=== PATIENT | male | born 1990 | race Caucasian/White ===

== ENCOUNTER 2019-01-23 18:57 | Emergency (ER) | payer OTHER ==
[~2019-01-23] VITALS: Ht 170.2 cm; Wt 62.1 kg
--- NOTE | 2019-01-23 19:00 | NUR ---
PER PATIENT TETANUS UPTODATE.
[2019-01-23] MEDS ORDERED: EMTR1TAB6 PO (19:07)
--- NOTE | 2019-01-23 19:10 | NUR ---
DR VAZQUEZ AT BEDSIDE SUTURING PATIENT LEFT LEG.
--- NOTE | 2019-01-23 19:20 | NUR ---
SECURITY AT BEDSIDE PATIENT NOT IN ANY DISTRESS AT THIS TIME.
--- NOTE | 2019-01-23 19:24 | NUR ---
PATIENT CLEARED BY DR VAZQUEZ STATED HE IS NOT SI.
[2019-01-23] MEDS ORDERED: LIDOCAINE HCL 2% 20 ML VIAL TP ONE (19:45)
--- NOTE | 2019-01-23 19:56 | NUR ---
Patient discharged to home in stable conditon. Written and verbal after care instructions given. Patient verbalizes understanding of instructions. Taken home by sister Kriss jennifer.
[2019-01-23 19:58] VITALS: BP 115/73
== END 2019-01-23 20:08 | disposition home or self-care (01) ==
LOC: ER 19:00
DX: S81.812A Laceration without foreign body, left lower leg, initial encounter (principal); F41.9 Anxiety disorder, unspecified; F32.9 Major depressive disorder, single episode, unspecified; Z91.030 Bee allergy status; Z79.899 Other long term (current) drug therapy; X58.XXXA Exposure to other specified factors, initial encounter; Y93.89 Activity, other specified; Y92.89 Other specified places as the place of occurrence of the external cause; Y99.8 Other external cause status
CPT/HCPCS: A4217; A4663

== ENCOUNTER 2019-01-26 16:28 | Emergency (ER) | payer OTHER ==
[~2019-01-26] VITALS: Ht 172.7 cm; Wt 61.2 kg
[~2019-01-26 16:28] MED LIST: EMTR1TAB6 PO
--- NOTE | 2019-01-26 16:50 | NUR ---
Patient discharged to home in stable conditon. Written and verbal after care instructions given. Patient verbalizes understanding of instructions.PT WALKS IN STEADY GAIT. PT ACCOMPANIED BY SISTER.
== END 2019-01-26 16:59 | disposition home or self-care (01) ==
LOC: ER 16:28
DX: S81.811D Laceration without foreign body, right lower leg, subsequent encounter (principal); F41.9 Anxiety disorder, unspecified; F32.9 Major depressive disorder, single episode, unspecified; Z91.030 Bee allergy status; Z79.899 Other long term (current) drug therapy; X58.XXXD Exposure to other specified factors, subsequent encounter
CPT/HCPCS: A4663

== ENCOUNTER 2019-02-06 15:47 | Emergency (ER) | payer OTHER ==
[~2019-02-06] VITALS: Ht 170.2 cm; Wt 61.2 kg
--- NOTE | 2019-02-06 16:08 | NUR ---
Patient ambulated with stable gait. Here for suture removal.
--- NOTE | 2019-02-06 16:14 | NUR ---
ERMD at bedside for MSE
--- NOTE | 2019-02-06 16:20 | NUR ---
Patient discharged to home in stable conditon. Written and verbal after care instructions given. Patient verbalizes understanding of instructions.pt walks in steady gait. pt with sister
== END 2019-02-06 16:22 | disposition home or self-care (01) ==
LOC: ER 15:47
DX: S81.812D Laceration without foreign body, left lower leg, subsequent encounter (principal); F41.9 Anxiety disorder, unspecified; F32.9 Major depressive disorder, single episode, unspecified; Z91.030 Bee allergy status; Z79.899 Other long term (current) drug therapy; X58.XXXD Exposure to other specified factors, subsequent encounter
CPT/HCPCS: A4663